=== PATIENT | male | born 1980 ===

== ENCOUNTER 2017-11-19 15:52 | Outpatient (CLI) | payer OTHER ==
[2017-11-23 09:11] LABS: EHRLICHIA CHAFFEENSIS Not Detected
== END 2017-11-19 15:53 ==
LOC: LAB 15:52
PROVIDERS: ATTEND Family Medicine
DX: R53.82 Chronic fatigue, unspecified (principal)
CPT/HCPCS: 36415; 86618; 86666; 86753; 86757; 87798